=== PATIENT | female | born 1950 | race Caucasian/White ===

== ENCOUNTER → 2021-03-25 | Outpatient (CLI) | payer OTHER ==
[~2021-03-25] MED LIST: PROTONIX40 MG PO
== END ==
LOC: KOH-I 12:46
DX: Q76.1 Klippel-Feil syndrome (principal); M51.24 Other intervertebral disc displacement, thoracic region; Z98.1 Arthrodesis status
CPT/HCPCS: 72141

== ENCOUNTER → 2021-04-08 | Outpatient (CLI) | payer OTHER | LOC: KOH-I 14:00 | DX: F17.210 Nicotine dependence, cigarettes, uncomplicated (principal); J98.4 Other disorders of lung | CPT/HCPCS: 71271 ==

== ENCOUNTER → 2021-06-02 | Outpatient (CLI) | payer OTHER | LOC: HEART 5 11:00 | DX: J44.9 Chronic obstructive pulmonary disease, unspecified (principal) | CPT/HCPCS: 94010 ==

== ENCOUNTER → 2022-01-14 | Outpatient (CLI) | payer OTHER ==
[~2022-01-14] MED LIST changes: +AMOX TR-K CLV1 EAC4 PO; +DOXYCYCLINE HY100 M2 PO; +EFFEXOR XR 75 M75 MG PO; +INVANZ 1 GM VIAL1 GM IV; +LEVOFLOXACIN750 MG PO; +PERCOCET 5/325 T1 EA PO; +PRAVASTATIN SOD20 MG PO; +TRAZODONE HCL100 MG PO; +VENLAFAXINE HCL75 M1 PO
[2022-01-14 16:31] LABS: HEMOGLOBIN 14.8 gm/dl (12.3-15.3); RED BLOOD COUNT 4.6 M/UL (4.00-5.10); WHITE BLOOD COUNT 11.7 K/UL (4.5-11.0)
== END ==
LOC: LAB 15:53
PROVIDERS: Registered Nurse
DX: R59.9 Enlarged lymph nodes, unspecified (principal)
CPT/HCPCS: 36415; 85025

== ENCOUNTER 2022-01-18 16:28 | Inpatient (IN) | payer OTHER ==
[~2022-01-18] VITALS: Ht 170.2 cm; Wt 63.5 kg
[~2022-01-18 16:28] MED LIST changes: -AMOX TR-K CLV1 EAC4 PO; -DOXYCYCLINE HY100 M2 PO; -EFFEXOR XR 75 M75 MG PO; -INVANZ 1 GM VIAL1 GM IV; -LEVOFLOXACIN750 MG PO; -PERCOCET 5/325 T1 EA PO; -PRAVASTATIN SOD20 MG PO; -TRAZODONE HCL100 MG PO; -VENLAFAXINE HCL75 M1 PO
[2022-01-18 18:41] LABS: RED BLOOD COUNT 4.58 M/UL (4.00-5.10); WHITE BLOOD COUNT 21.3 K/UL (4.5-11.0)
[2022-01-18 19:01] LABS: BUN/CREATININE RATIO 17 (0-10)
[2022-01-19 03:39] LABS: WHITE BLOOD COUNT 16.4 K/UL (4.5-11.0)
[2022-01-19 03:48] LABS: RED BLOOD COUNT 3.96 M/UL (4.00-5.10)
[2022-01-19 03:56] LABS: BUN/CREATININE RATIO 11 (0-10)
[2022-01-19] MEDS ORDERED: TRAZODONE HCL100 MG PO (10:56)
[2022-01-19] MEDS ORDERED: PRAVASTATIN SOD20 MG PO (10:57)
[2022-01-20 06:26] LABS: HEMOGLOBIN 11.9 gm/dl (12.3-15.3); RED BLOOD COUNT 3.98 M/UL (4.00-5.10)
[2022-01-20 06:33] LABS: WHITE BLOOD COUNT 10.1 K/UL (4.5-11.0)
[2022-01-20 07:26] LABS: BUN/CREATININE RATIO 11 (0-10)
[2022-01-21 05:01] LABS: HEMOGLOBIN 11.7 gm/dl (12.3-15.3); RED BLOOD COUNT 3.93 M/UL (4.00-5.10)
[2022-01-21 05:02] LABS: WHITE BLOOD COUNT 7.2 K/UL (4.5-11.0)
[2022-01-21 05:50] LABS: BUN/CREATININE RATIO 8 (0-10)
[2022-01-21] MEDS ORDERED: INVANZ 1 GM VIAL1 GM IV ×2 (11:30→12:29)
[2022-01-21] MEDS ORDERED: PERCOCET 5/325 T1 EA PO (11:31)
[2022-01-21] MEDS ORDERED: AMOX TR-K CLV1 EAC4 PO (12:31)
[2022-01-21] MEDS ORDERED: DOXYCYCLINE HY100 M2 PO (12:40)
[2022-01-21] MEDS ORDERED: LEVOFLOXACIN750 MG PO (14:24)
[2022-01-21] MEDS ORDERED: EFFEXOR XR 75 M75 MG PO (16:54)
[2022-01-21] MEDS ORDERED: VENLAFAXINE HCL75 M1 PO (16:55)
== END 2022-01-21 17:15 | disposition home or self-care (01) | DRG 155 ==
LOC: ER1 16:28 → MED SURG 4 18:36 → CDU 18:36 → MED SURG 4 21:16
PROVIDERS: Internal Medicine; Physician Assistant; ADMIT Internal Medicine
DX: H60.11 Cellulitis of right external ear (principal); E87.1 Hypo-osmolality and hyponatremia; L03.116 Cellulitis of left lower limb; A46 Erysipelas; E78.00 Pure hypercholesterolemia, unspecified; F17.210 Nicotine dependence, cigarettes, uncomplicated; H62.41 Otitis externa in other diseases classified elsewhere, right ear; Z80.1 Family history of malignant neoplasm of trachea, bronchus and lung
CPT/HCPCS: 70450; 71045; 80048; 80053; 80202; 81001; 83605; 83735; 84295; 85025; 85027; 85379; 85652; 86140; 87040; 87086; 93005; 93971; 96372; 96374; 96375; 96376; 99285; G0378; J0692; J1335; J1650; J2185; J2270; J3370; J7070; U0002

== ENCOUNTER → 2022-01-22 | Outpatient (CLI) | payer OTHER ==
[~2022-01-22] VITALS: Ht 170.2 cm; Wt 63.5 kg
[~2022-01-22] MED LIST changes: +AMOX TR-K CLV1 EAC4 PO; +DOXYCYCLINE HY100 M2 PO; +EFFEXOR XR 75 M75 MG PO; +INVANZ 1 GM VIAL1 GM IV; +LEVOFLOXACIN750 MG PO; +PERCOCET 5/325 T1 EA PO; +PRAVASTATIN SOD20 MG PO; +TRAZODONE HCL100 MG PO; +VENLAFAXINE HCL75 M1 PO
== END ==
LOC: OPSV 07:00
DX: L03.116 Cellulitis of left lower limb (principal)
CPT/HCPCS: 96372; J1335

== ENCOUNTER → 2022-01-23 | Outpatient (CLI) | payer OTHER ==
[~2022-01-23] VITALS: Ht 170.1 cm; Wt 63.5 kg
== END ==
LOC: OPSV 06:36
DX: L03.116 Cellulitis of left lower limb (principal)
CPT/HCPCS: 96372; J1335